=== PATIENT | male | born 1980 | race Two or more races ===

== ENCOUNTER 2021-04-26 14:29 | Outpatient (REF) | payer MEDICAID, OTHER, SELFPAY ==
--- NOTE | ~2021-04-26 | XR_ITS ---
EXAMINATION: XR THORACIC SPINE CLINICAL INFORMATION: Dorsalgia. COMPARISON: None TECHNIQUE: 2 views of the dorsal spine. FINDINGS: The heights, alignments of the dorsal vertebrae are well-maintained. The posterior appendages are intact. Intervertebral disc heights are well-maintained. The paraspinal soft tissues are unremarkable. XR/XR thoracic spine 2V IMPRESSION: Unremarkable radiographic appearance of the dorsal spine.
--- NOTE | ~2021-04-26 | XR_ITS ---
EXAMINATION: XR CHEST CLINICAL INFORMATION: Chest pain. COMPARISON: None TECHNIQUE: 2 views of the chest were obtained. FINDINGS: No significant abnormality is noted involving the heart, lungs, mediastinum, bony thorax or soft tissues. XR/XR chest 2V IMPRESSION: Unremarkable chest examination.
== END 2021-04-26 14:30 | disposition home or self-care (01) ==
LOC: HO.XRAY 14:29
PROVIDERS: PCP Internal Medicine; Visit Provider Family Medicine
DX: R07.89 Other chest pain (principal); M54.9 Dorsalgia, unspecified
CPT/HCPCS: 71046; 72070